=== PATIENT | male | born 1950 | race Caucasian/White ===

== ENCOUNTER 2018-08-01 06:28 | Day surgery (SDC) ==
[~2018-08-01 06:28] MED LIST: BRIMONIDINE TARTRATE 0.2% OPTH SOL OP PRN; BSS WITH EPINEPHRINE OP ONE; DEX-MOXI-KETOR OPTH INJ 1/0.5/0.4 MG/ML IO ONE; LIDOCAINE 1%/PHENYLEPHRINE 1.5% BSS (SURGERY) INTRAOCULA ONE; ZOFRAN 4 MG/2 ML IVP ONE
[2018-08-01] MEDS: BETADINE OPTH PREP OP PRN ×2 (07:00→07:44)
[2018-08-01] MEDS ORDERED: LIDOCAINE 1% 20 ML MDV ID STA (07:00)
[2018-08-01] MEDS ORDERED: AK-DILATE 10% OPTH SOL OP PRN (07:00)
[2018-08-01] MEDS: TETRACAINE 0.5% UNIT-DOSE OP PRN ×2 (07:00→07:43)
[2018-08-01] MEDS: CYCLOGYL 2% OPTH OP PRN ×3 (07:00→07:10)
[2018-08-01] MEDS ORDERED: VERSED ONE (07:37)
[2018-08-01] MEDS ORDERED: ZOFRAN 4 MG/2 ML ONE (07:37)
[2018-08-01] MEDS ORDERED: SUBLIMAZE ONE (07:37)
[2018-08-01 10:15] VITALS: TEMP 97.1
[2018-08-01 15:55] VITALS: BP 112/77
== END 2018-08-01 08:30 | disposition home or self-care (01) ==
LOC: SURG 06:28
PROVIDERS: ATTEND Ophthalmology
DX: H25.12 Age-related nuclear cataract, left eye (principal)

== ENCOUNTER 2018-08-15 06:34 | Day surgery (SDC) ==
[~2018-08-15 06:34] MED LIST changes: +AK-DILATE 10% OPTH SOL OP PRN; +LIDOCAINE 1% 20 ML MDV ID STA
[2018-08-15] MEDS: TETRACAINE 0.5% UNIT-DOSE OP PRN ×2 (07:00→07:23)
[2018-08-15] MEDS: BETADINE OPTH PREP OP PRN ×2 (07:00→07:23)
[2018-08-15] MEDS: CYCLOGYL 2% OPTH OP PRN ×3 (07:00→07:10)
[2018-08-15] MEDS ORDERED: ZOFRAN 4 MG/2 ML ONE (07:25)
[2018-08-15] MEDS ORDERED: VERSED ONE (07:25)
[2018-08-15] MEDS ORDERED: SUBLIMAZE ONE (07:25)
[2018-08-15 10:40] VITALS: TEMP 97.2
[2018-08-18 16:53] VITALS: BP 126/78
== END 2018-08-15 08:15 | disposition home or self-care (01) ==
LOC: SURG 06:34
PROVIDERS: ATTEND Ophthalmology
DX: H25.11 Age-related nuclear cataract, right eye (principal)